=== PATIENT | female | born 2000 | race Caucasian/White ===

== ENCOUNTER 2020-09-28 12:00 | Inpatient (IN) | payer MEDICAID ==
[2020-09-28] VITALS (13 sets, daily range): BP systolic 128–160; BP diastolic 76–97; PULSE 58–97; TEMP 97.9–98.1
[~2020-09-28] VITALS: Ht 152.4 cm; Wt 74.1 kg
--- NOTE | 2020-09-28 11:50 | NUR ---
PATIENT HERE TO WITH SIGNIFICANT OTHER, HIMANSHU. PATIENT HAS HAD CONTRACTIONS SINCE 0000. PATIENT ON EFM, ASSESMENT COMPLETE, SVE PREFORMED. DR VAZQUEZ CALLED. IV STARTED, CENSENTS SIGNED. AROM BY DR VAZQUEZ AT 1218. AT 1238. TO MOTHERS CHEST IN CARE OF JAY AND STUART FERRERA, FOB CUT CORD, PLACNETA DELIVERED AT 1242. OXYTOCIN STARTED AT 333 MLS/ HR. FUNDAL MASSAGE PROVIDED. PERINEUM INTACT. RECOVERY STARTED AT 1245. ICE PACK TO PERINEUM
[2020-09-28] MEDS ORDERED: PRENATAL (12:23)
[2020-09-28 12:34] LABS: BASO # 0.1 (0.0-0.2); BASO % 0.3 % (0.0-2.0); EOS % 0.2 % (0-4.0); GRAN # 14.6 (1.4-6.5); GRAN % 83.8 % (42.2-75.2); HEMATOCRIT 38.6 % (37.0-47.0); HEMOGLOBIN 12.8 g/dl (12.5-16.0); LYMPH # 1.9 (1.2-3.4); LYMPH % 10.9 % (20.0-51.0); MEAN CELL VOLUME 90 fl (80.0-100.0); MEAN CORPUSCULAR HEMOGLOBIN 30 pg (27.0-31.0); MEAN CORPUSCULAR HGB CONC 33 g/dl (33.0-37.0); MEAN PLATELET VOLUME 11.7 fl (7.4-10.4); MONO # 0.8 (0.1-0.6); MONO % 4.4 % (1.7-9.3); PLATELET COUNT 180 K/mm3 (130-400)
[2020-09-29 02:40] VITALS: BP 131/83; PULSE 65; TEMP 97.5
[2020-09-29 07:14] VITALS: BP 122/85; PULSE 74; TEMP 97.9
[2020-09-29] MEDS ORDERED: MOTRIN 800800 MG/TAB PO (07:30)
[2020-09-29 17:10] VITALS: BP 137/77; PULSE 87; TEMP 98
[2020-09-29 19:30] VITALS: BP 137/73; PULSE 81; TEMP 97.6
[2020-09-30 07:30] VITALS: BP 129/81; PULSE 89; TEMP 98
--- NOTE | 2020-09-30 10:18 | NUR ---
DISCHARGE TEACHING COMPLETED. PT EDUCATED ON RX AND FOLLOW UP APPOINTMENT. QUESTIONS INVITED AND ANSWERED.
== END 2020-09-30 12:40 | disposition home or self-care (01) | DRG 807 ==
LOC: LDRO 12:00 → LDR 12:02 → OB 12:02 → LDRO 12:13 → OB 14:45
PROVIDERS: ADMIT Obstetrics & Gynecology
PROC: 10E0XZZ Delivery of Products of Conception, External Approach (ICD-10-PCS; principal; 2020-09-28)
DX: O99.824 Streptococcus B carrier state complicating childbirth (principal); Z37.0 Single live birth; Z3A.38 38 weeks gestation of pregnancy
CPT/HCPCS: J2540; J2590; J7120